=== PATIENT | male | born 1960 ===

== ENCOUNTER → 2020-04-23 | Outpatient (CLI) | payer SELFPAY ==
[~2020-04-23] MED LIST: COVID-19 VACCINE (PFIZER)/PF 30 MCG/0.3 ML VIAL IM ONE; EPINEPHRINE INJ/PF 1 MG/1 ML AMPULE IM PRN
--- OUTSIDE RECORDS SUMMARY | 2020-04-26 10:33 | XMS REPORT ---
:1960 Author Organization [facility] Address [address] [place] [address] Care Team Providers Name Role Phone Lily Bateman Primary Care Physician Unavailable MD Emi Sutton Attending Clinician Unavailable MD Feroz Sutton Attending Clinician Unavailable Gilles GRIFFIN Attending Clinician Unavailable Kasia GEORGE Attending Clinician Unavailable Fransico Attending Clinician Unavailable Services Attending Clinician Unavailable Shaina FLAT BED KNITTER, M Unavailable Fransico MULLINS, F Unavailable Allergies, Adverse Reactions, Alerts Allergy Allergy Status Severity Reaction(s) Onset Inactive Treating C omments Name Type Date Date Clinician Penicillin Penicillin Active Rash 2020-0 G G 3-11 Benzathine Benzathine 00:00: & Proc & Proc 00 *PENICILLIN *PENICILLI S* NS* Penicillins Allergy to Active 2018-04 ([id number] substance 2-23 ) 00:00: 00 Penicillins Penicillin Inactive Rash s Medications Ordered Filled Start Stop Current Ordering Indication Dosage Frequency Signature Comments Components Medication Medication Date Date Medication? Clinician (SIG) Name Name Ketorolac 2018-04 No Ketorolac Medic atio Tromethamin Tromethami n t aken e 10 MG 12:58: ne 10 MG as Oral Tablet 33 Oral needed. Tablet as needed (10 MG) Active Comments: Medication taken as needed. predniSONE 2018-04 No Lily Garcia 2{Table predniSONE 20 MG Oral Bateman t} 20 MG Oral Tablet 00:00: PAC Tablet 2 00 (two) Tablet day x 3 days, then 1 day x 3 days for 6 days Quantity: 9 {Tablet} Refills: 0 Ordered: 9 Lily Dangelo Start : 9Active Polymyxin/T 2018-04 Yes 1 Q3hwa DO rimethoprim 2-23 NOT EXCEED Sulfate 16:52: 6 00 DOSES/DAY Ketorolac 2018-04 Yes 10 Four Times Tromethamin 2-23 Daily as e 16:44: needed for 00 Pain Methocarbam 2018-04 Yes 750 Every 4 ol 2-23 Hours for 16:44: 00 ALEVE, Yes 2{Capsu ALEVE, Medicatio 220MG (Oral 12-16 le} 220MG n taken Capsule) 13:28: (Oral as 22 Capsule) 2 needed. as needed (220 MG) Active Comments: Medication taken as needed. Baclofen 10 No 0{Table Baclofen Me dicatio MG Oral 12-16 t} 10 MG Oral n taken Tablet 13:28: Tablet 1-2 as 22 as needed needed. (10 MG) Active Comments: Medication taken as needed. ZyrTEC Yes 1{Capsu QD ZyrTEC Allergy 10 12-16 le} Allergy 10 MG Oral 13:28: MG Oral Capsule 22 Capsule 1 daily (10 MG) Active Iron 28 MG No 1{Table QD Iron 28 MG Oral Tablet t} Oral Tablet 1 daily (28 MG) Active traMADol Yes 0{Table traMADol [facility] HCl 50 MG t} HCl 50 MG n take n Oral Tablet Oral as Tablet 1-2 needed. As needed (50 MG) Active Comments: Medication taken as needed. Iron 65 MG Yes 1{Table QD Iron 65 MG Oral Tablet t} Oral Tablet 1 daily (65 MG) Active Tamsulosin No 1{Capsu QD Tamsulosin St arted HCl 0.4 MG le} HCl 0.4 MG by Nelly goodman Oral Oral MD Herman Capsule Capsule 1 on daily (0.4 07/17/19 MG) Active Comments: Started by Feroz Sutton MD on 07/17/19 Problems Condition Condition Condition Status Onset Resolution Last Treatin g Comments Name Details Category Date Date Treatment Clinician Date Problem No Known Condition 2019-042020-03-07 Merritt, Impairments 05-08 14:12:13 Kristen M 00:00: 00 Problem No Known Condition Inactiv 2019-08-31 Merritt, Impairments e 12-16 13:49:47 Kristen M 00:00: 00 Low back Low back Problem Active Bateman, pain, pain, Lily F non-specifi non-specifi c c IMPAIRED IMPAIRED Problem Active Bateman, FASTING FASTING Lily Garcia GLUCOSE GLUCOSE (Renamed (Renamed from from Elevated Elevated fasting fasting blood blood sugar) sugar) PURE PURE Problem Active Bateman, HYPERCHOLES HYPERCHOLES Lily Garcia TEROLEMIA TEROLEMIA (Renamed (Renamed from from Hypercholes Hypercholes terolemia terolemia without without hypertrigly hypertrigly ceridemia) ceridemia) Annual Annual Problem Active Fransico, physical physical Lily Garcia exam exam BMI BMI Problem Active Bateman, 29.0-29.9,a 29.0-29.9,a Lily Garcia dult dult BMI BMI Problem Active Bateman, 31.0-31.9,a 31.0-31.9,a Lily Garcia dult dult Depression Depression Problem Inactiv Bateman, screening screening e Lily Garcia negative negative (Renamed (Renamed from from Negative Negative depression depression screening) screening) Screening Screening Problem Active Fransico, for for Lily Garcia depression depression Refusal Refusal (Renamed (Renamed from from Screening Screening for for depression) depression) Plantar Plantar Problem Active Fransico, fasciitis fasciitis Lily Garcia Prostate Prostate Problem Active Bateman, cancer cancer Lily Garcia screening screening Cough Cough Problem Active Lily Bateman Microcytic Microcytic Problem Active Bateman, erythrocyte erythrocyte Lily Garcia s s Micturition Micturition Problem Active Yunior varner, syncope syncope Lily Garcia Sinus pain Sinus pain Problem Active Lily Bateman Orthostasis Orthostasis Problem Active Lily Chavez Procedures Procedure Date / Time Performed Performing Clinician Devi e Venipuncture for blood test (76766) 2020-03-02 00:00:00 Lily Chavez Venipuncture for blood test (08997) 2019-08-21 00:00:00 Lily Chavez Annual Depression Screening 2019-06-10 00:00:00 Kristen [facility] HG A1C LEVEL < 7.0% (3044F) 2019-05-26 00:00:00 Lily Bateman Venipuncture for blood test (34710) 2019-05-26 00:00:00 Lily Chavez Venipuncture for blood test (60790) 2019-04-02 00:00:00 Lily Chavez HG A1C LEVEL < 7.0% (3044F) 2018-12-03 00:00:00 Lily Bateman Venipuncture for blood test (97299) 2018-12-03 00:00:00 Lily Chavez Annual Depression Screening 2018-06-02 00:00:00 Kristen Merritt OFFICE OUTPATIENT VISIT 15 MINUTES 2017-05-29 14:30:00 HG A1C LEVEL < 7.0% (3044F) 2017-05-21 13:38:00 Venipuncture for blood test (73599) 2017-05-21 10:13:00 OFFICE OUTPATIENT VISIT 15 MINUTES 2017-03-28 14:13:00 OFFICE OUTPATIENT VISIT 15 MINUTES 2015-09-29 11:15:00 Colonoscopy,screening 2013-08-28 00:00:00 Kristen [facility] Anal Fissure Repair Lily Bateman Flu Vaccine Kristen [facility] Kidney stone removal Lily Bateman Rotator Cuff Repair - Right Lily Bateman Tonsillectomy Lily Bateman Results Test Description Test Time Test Comments Text Results Atomic Results Result Comments SARS-CoV-2 RNA Resp Ql NICOLE+probe 2020-04-20 00:00:00 Test Item Value Reference Range Comments SARS-CoV-2 RNA Resp Ql NICOLE+probe Not detected [facility] Case ID: (test code = 70551-8) [id number] SARS-CoV-2 RNA Resp Ql NICOLE+qplve9367-11-91 00:00:00 Test Item Value Reference Range Comments SARS-CoV-2 RNA Resp Ql Not detected [facility] Case NICOLE+probe (test code = ID: COVID [id number]) SARS-CoV-2 RNA Resp Ql NICOLE+[id number] 00:00:00 Test Item Value Reference Range Comments SARS-CoV-2 RNA Resp Ql Not detected [facility] Case NICOLE+probe (test code = ID: COVID _[id number]) Hemoglobin A1c (20876)2019-05-26 00:00:00 Test Item Value Reference Range Comments HEMOGLOBIN GLYCLATED (HGB A1C) (test code = 4548-4) 5.3 % 0-5.7 Color of Urine by [id number] 15:41:00 Test Item Value Reference Range Comments Urine Color (test code = 67957-3) Yellow Urine clarity by refractometry [id number] 15:41:00 Test Item Value Reference Range Comments Urine Appearance (test code = 77841-8) Clear Urine specific gravity measurement by automated test strip (relative density) 2019-03-23 15:41:00 Test Item Value Reference Range Comments Urine Specific [place] (test code = 60729-4) 1.019 1.0 05-1.030 Urine pH measurement by automated test [id number] 15:41:00 Test Item Value Reference Range Comments Urine pH (test code = 37514-2) 6.0 5.0-8.0 Urine leukocyte esterase detection by automated test [id number] 15:41:00 Test Item Value Reference Range Comments Urine Leukocyte Esterase (test code = 47881-0) NEGATIVE N EGATIVE Urine nitrite detection by automated test [id number] 15:41:00 Test Item Value Reference Range Comments Urine Nitrite (test code = 56493-2) NEGATIVE NEGATIVE Urine protein detection by automated test [id number] 15:41:00 Test Item Value Reference Range Comments Urine Protein (test code = 72724-8) NEGATIVE NEGATIVE Urine glucose detection by automated test [id number] 15:41:00 Test Item Value Reference Range Comments Urine Glucose (UA) (test code = 22900-5) NEGATIVE NEGATIV E Urine ketone detection by automated test [id number] 15:41:00 Test Item Value Reference Range Comments Urine Ketones (test code = 19946-6) NEGATIVE NEGATIVE Urine urobilinogen measurement by automated test strip (mass/volume)2019-03-23 15:41:00 Test Item Value Reference Range Comments Urine Urobilinogen (test code = 56165-3) NEGATIVE NEGATIV E Urine bilirubin detection by automated test [id number] 15:41:00 Test Item Value Reference Range Comments Urine Bilirubin (test code = 59011-7) NEGATIVE NEGATIVE Urine erythrocytes detection by automated [id number] 15:41:00 Test Item Value Reference Range Comments Urine Blood (test code = 81765-1) NEGATIVE NEGATIVE Urine ascorbic acid [id number] 15:41:00 Test Item Value Reference Range Comments Urine Ascorbic Acid Level 1+ "Ascor bic acid is found in various (test code = 1904-2) food suppli es and dietary supplements. Con centrations of ascorbic acid gr eater than 1+ can be expected to c ause strong interference wit h glucose, blood, and nitrite, pos sibly resulting in false negatives. " [id number] 15:00:[address] [id number] Patient: LILY KELLER : 1960 Sex: M Address: [address] [place] [address] [place] [address] Unit #: [id number] REQ SEQ #: [id number] [place] [facility] [place]: Ordering: RAMESH OLVERA PA-C Diagnosis: DIZZY/SEVERAL FALLS LUMBAR SPINE 3 VIEWS, HIP RIGHT 2 VIEWS WITH PELVIS, SACRUM COCCYX Clinical Information: DIZZY/SEVERAL FALLS Comparison: Lumbar spine 08/08/2018 Lumbar spine: AP and lateral views of the lumbar spine, as well as a coned down lateral view of the lumbosacral junction show 5 nonrib-bearing lumbar vertebrawith normal height. No evidence for acute fractures or subluxation. Unchanged mild lumbar levoscoliosis. There is moderate disc space osteophytes at L5-S1 from degenerative disc changes. Facet arthrosis at L5-S1 and L4-5.. Pedicles and endplates appear intact. Paravertebral soft tissues appear within normal limits. Impression: 1. No radiographic evidence for acute lumbar spine trauma. 2.Lower lumbar spondylosis. Pelvis and right hip: An AP view of the pelvis, AP right hip, and frog-lateral view of the right hip show no acute bony, joint or soft tissue abnormalities. There is no evidence for acute fracture or dislocation. Mild osteoarthritis of both hips. Impression: Degenerative changes without evidence for acute fracture or dislocation right hip. Sacrum andcoccyx: 3 views. SI joints and pubic symphysis are unremarkable. Sacrum and coccyx appear intact. No displaced fractures. IMPRESSION: No radiographic evidence for acute fracture. Final report electronically signed by: Michael Mueller DO Signed by: KRYSTINA MUELLER DO 03/23/19 [id number] cc: RAMESH OLVERA PA-C, WILLIAM C DO [id number] 15:00:[address] [id number] Patient: LILY KELLER : 1960 Sex: M Address: [address] [place] [address] [place] [address] Unit #: [id number] REQ SEQ #: [id number] Location: [facility] Room #: Ordering: RAMESH OLVERA PA-C Diagnosis: DIZZY/SEVERAL FALLS LUMBAR SPINE 3 VIEWS, HIP RIGHT 2 VIEWS WITH PELVIS, SACRUM COCCYX Clinical Information: DIZZY/SEVERAL FALLS Comparison: Lumbar spine 08/08/2018 Lumbar spine: AP and lateral views of the lumbar spine, as well as a coned down lateral view of the lumbosacral junction show 5 nonrib-bearing lumbar vertebrawith normal height. No evidence for acute fractures or subluxation. Unchanged mild lumbar levoscoliosis. There is moderate disc space osteophytes at L5-S1 from degenerative disc changes. Facet arthrosis at L5-S1 and L4-5.. Pedicles and endplates appear intact. Paravertebral soft tissues appear within normal limits. Impression: 1. No radiographic evidence for acute lumbar spine trauma. 2.Lower lumbar spondylosis. Pelvis and right hip: An AP view of the pelvis, AP right hip, and frog-lateral view of the right hip show no acute bony, joint or soft tissue abnormalities. There is no evidence for acute fracture or dislocation. Mild osteoarthritis of both hips. Impression: Degenerative changes without evidence for acute fracture or dislocation right hip. Sacrum andcoccyx: 3 views. SI joints and pubic symphysis are unremarkable. Sacrum and coccyx appear intact. No displaced fractures. IMPRESSION: No radiographic evidence for acute fracture. Final report electronically signed by: Michael Mueller DO Signed by: KRYSTINA MUELLER DO 03/23/19 1305 cc: RAMESH OLVERA PA-C, WILLIAM C DO [id number] 15:00:[address] [id number] Patient: LILY KELLER : 1960 Sex: M Address: [address] [place] [address] [place] [address] [id number] Unit #: [id number] [facility] SEQ #: [id number] [place] [facility] [place] #: Ordering: RAMESH OLVERA PA-C Diagnosis: DIZZY/SEVERAL FALLS LUMBAR SPINE 3 VIEWS, HIP RIGHT 2 VIEWS WITH PELVIS, SACRUM COCCYX Clinical Information: DIZZY/SEVERAL FALLS Comparison: Lumbar spine 08/08/2018 Lumbar spine: AP and lateral views of the lumbar spine, as well as a coned down lateral view of the lumbosacral junction show 5 nonrib-bearing lumbar vertebrawith normal height. No evidence for acute fractures or subluxation. Unchanged mild lumbar levoscoliosis. There is moderate disc space osteophytes at L5-S1 from degenerative disc changes. Facet arthrosis at L5-S1 and L4-5.. Pedicles and endplates appear intact. Paravertebral soft tissues appear within normal limits. Impression: 1. No radiographic evidence for acute lumbar spine trauma. 2.Lower lumbar spondylosis. Pelvis and right hip: An AP view of the pelvis, AP right hip, and frog-lateral view of the right hip show no acute bony, joint or soft tissue abnormalities. There is no evidence for acute fracture or dislocation. Mild osteoarthritis of both hips. Impression: Degenerative changes without evidence for acute fracture or dislocation right hip. Sacrum andcoccyx: 3 views. SI joints and pubic symphysis are unremarkable. Sacrum and coccyx appear intact. No displaced fractures. IMPRESSION: No radiographic evidence for acute fracture. Final report electronically signed by: Michael Mueller DO Signed by: KRYSTINA MUELLER DO 03/23/19 [id number] cc: RAMESH OLVERA PA-C, WILLIAM C DO Total [id number] 13:44:00 Test Item Value Reference Range Comments Total Bilirubin (test code = HIJ3041) 0.7 0.1-1.2 Total protein [id number] 13:44:00 Test Item Value Reference Range Comments Total Protein (test code = 2885-2) 7.1 6.0-8.3 Blood leukocytes automated count (number/volume)2019-03-23 13:44:00 Test Item Value Reference Range Comments White Blood Count (test code = 6690-2) 11.9 3.6-11.1 [id number] 13:44:00 Test Item Value Reference Range Comments Albumin (test code = ERT4000) 4.3 3.2-5.2 Plasma globulin measurement (mass/volume)2019-03-23 13:44:00 Test Item Value Reference Range Comments Globulin (test code = 66091-3) 2.8 2.6-4.6 Albumin to globulin [id number] 13:44:00 Test Item Value Reference Range Comments Albumin/Globulin Ratio (test code = 462314) 1.5 1.1- 2.5 AST (SGOT) ser/jfpw6986-34-19 13:44:00 Test Item Value Reference Range Comments Aspartate Amino Transf (AST/SGOT) (test code = 13 5 -34 71505057) Alkaline bqgwxobmmmr6302-17-64 13:44:00 Test Item Value Reference Range Comments Alkaline Phosphatase (test code = 63280389) 103 40-1 50 ALT (SGPT) ser/hzhq5105-61-74 13:44:00 Test Item Value Reference Range Comments Alanine Aminotransferase (ALT/SGPT) (test code = 14 0-55 1742-6) Blood erythrocytes automated count (number/volume)2019-03-23 13:44:00 Test Item Value Reference Range Comments Red Blood Count (test code = 789-8) 5.93 4.27-5.49 Blood hemoglobin measurement (mass/volume)2019-03-23 13:44:00 Test Item Value Reference Range Comments Hemoglobin (test code = 718-7) 14.1 12.9-16.1 Automated blood hematocrit (volume fraction)2019-03-23 13:44:00 Test Item Value Reference Range Comments Hematocrit (test code = 4544-3) 43.5 37.7-46.5 Automated erythrocyte mean corpuscular [id number] 13:44:00 Test Item Value Reference Range Comments Mean Corpuscular Volume (test code = 787-2) 73.4 79.3 -94.8 Automated erythrocyte mean corpuscular hemoglobin (mass per erythrocyte) 2019-03-23 13:44:00 Test Item Value Reference Range Comments Mean Corpuscular Hemoglobin (test code = 785-6) 23.8 26.8-33.2 Automated erythrocyte mean corpuscular hemoglobin concentration measurement (mass/volume)2019-03-23 13:44:00 Test Item Value Reference Range Comments Mean Corpuscular Hemoglobin Concent (test code = 32.4 33.5-35.5 786-4) Automated erythrocyte distribution width plwjk3909-14-39 13:44:00 Test Item Value Reference Range Comments Red Cell Distribution Width (test code = 788-0) 16.5 12.0-15.1 Automated blood platelet count (count/volume)2019-03-23 13:44:00 Test Item Value Reference Range Comments Platelet Count (test code = 777-3) 247 165-353 Automated blood platelet mean volume dbufrpqcuhp1572-45-73 13:44:00 Test Item Value Reference Range Comments Mean Platelet Volume (test code = 33899-3) 8.2 7.5-1 0.6 Automated blood neutrophil count as percentage of total iivpukppdq4158-20-72 13:44:00 Test Item Value Reference Range Comments Neutrophils (%) (Auto) (test code = 770-8) 83.0 43.2- 71.5 Automated blood lymphocyte count as percentage of total tndibogsdo1923-04-79 13:44:00 Test Item Value Reference Range Comments Lymphocytes (%) (Auto) (test code = 736-9) 8.8 16.8- 43.4 Automated blood monocyte count as percentage of total hnamoyrsmg3285-37-71 13:44:00 Test Item Value Reference Range Comments Monocytes (%) (Auto) (test code = 5905-5) 7.3 4.6-12 .4 Automated blood eosinophil count as percentage of total bxgwgtjcrt8374-02-51 13:44:00 Test Item Value Reference Range Comments Eosinophils (%) (Auto) (test code = 713-8) 0.1 0.7-7 .8 Automated blood basophil count as percentage of total hkmhmethoq7795-67-01 13:44:00 Test Item Value Reference Range Comments Basophils (%) (Auto) (test code = 706-2) 0.8 0.2-1.2 Blood neutrophils automated count (number/volume)2019-03-23 13:44:00 Test Item Value Reference Range Comments Neutrophils # (Auto) (test code = 751-8) 9.8 1.9-7.2 Automated blood lymphocyte count (number/volume)2019-03-23 13:44:00 Test Item Value Reference Range Comments Lymphocytes # (Auto) (test code = 731-0) 1.0 1.1-2.7 Blood monocytes automated count (number/volume)2019-03-23 13:44:00 Test Item Value Reference Range Comments Monocytes # (Auto) (test code = 742-7) 0.9 0.3-0.8 Automated blood eosinophil xdpqk4619-79-42 13:44:00 Test Item Value Reference Range Comments Eosinophils # (Auto) (test code = 711-2) 0.0 0.0-0.5 Automated blood basophil count (count/volume)2019-03-23 13:44:00 Test Item Value Reference Range Comments Basophils # (Auto) (test code = 704-7) 0.1 0.0-0.1 Sodium qtykx6759-58-75 13:44:00 Test Item Value Reference Range Comments Sodium Level (test code = 121762401) 142 137-144 Potassium zpcig0405-83-84 13:44:00 Test Item Value Reference Range Comments Potassium Level (test code = 044611769) 4.3 3.1-5.1 Chloride cbchj3750-05-40 13:44:00 Test Item Value Reference Range Comments Chloride Level (test code = 654882653) 104 101-110 Carbon dioxide iuspt6936-98-53 13:44:00 Test Item Value Reference Range Comments Carbon Dioxide Level (test code = 89429779) 29 22-2 9 Glucose ntgum5086-23-49 13:44:00 Test Item Value Reference Range Comments Glucose Level (test code = 60747673) 116 70-105 [id number] 13:44:00 Test Item Value Reference Range Comments Blood Urea Nitrogen (test code = 099744025) 22.0 8.4- 25.7 Creatinine nwwou4347-28-92 13:44:00 Test Item Value Reference Range Comments Creatinine (test code = 783267164) 0.99 0.72-1.25 Estimation of creatinine qsdnczyvf3086-03-27 13:44:00 Test Item Value Reference Range Comments Estimated Creatinine Clearance 88.18 P T Ht: 182.88cm, PT Wt: 90.9KG Calc (test code = 160755896) Anion gap mclrxrpstef9079-39-22 13:44:00 Test Item Value Reference Range Comments Anion Gap (test code = 14937849) 13 7-16 Yqmsivf3588-52-53 13:44:00 Test Item Value Reference Range Comments Calcium Level (test code = 74087500) 9.6 8.4-10.2 Hemoglobin A1c (58236)2018-12-03 00:00:00 Test Item Value Reference Range Comments HEMOGLOBIN GLYCLATED (HGB A1C) (test code = 4548-4) 5.4 % 0-5.7 JUYUMZEKZ9306-51-46 10:36:[address] [id number] Patient: LILY KELLER : 1960 Sex: M Address: [address] [place] [address] [place] [address] Unit #: [id number] [facility] SEQ #: [id number] Location: [facility] Room #: Ordering: DAMARI GEORGE MD Diagnosis: THORACIC SPIN PAIN L SPINE W/FLEX EXT 7 VIEWS Clinical Information: THORACIC SPINE PAIN. Low back pain. The lumbar vertebrae are normally mineralized. There is no evidence of blastic or destructive changes. There is mild compressionof the L4 vertebral body not significantly changed. There is L5-S1 disc space narrowing with small marginal osteophytes. There is facet arthrosis more prominent at the lower levels. There is no evidence of fracture, subluxation or rotation abnormality. There is no evidence of instability in flexion or extension. There is mild scoliosis convex to the left. The paraspinal soft tissues are unre markable. IMPRESSION: 1. Degenerative changes as described above. 2. Mild chronic L4 vertebral compression deformity. 3. Scoliosis. 4. Otherwise unremarkable. Final report electronically signed by: Feroz Samson MD Signed by: FEROZ SAMSON MD 08/08/18 [id number] cc: KIMMIE SAMSON MD, DEBRA R CHCLWOYTWIF2781-48-03 10:34:[address] [address] [id number] Patient: LILY KELLER : 1960 Sex: M Address: [address] [place] [address] [place] [address] Unit #: [id number] [facility] SEQ #: [id number] Location: [facility] Room #: Ordering: DAMARI GEORGE MD Diagnosis: THORACIC SPIN PAIN THORACIC SPINE 2 VIEWS Clinical Information: THORACIC SPINE PAIN Comparison 09/16/2013. The thoracic vertebrae are normally mineralized. There is no evidence of blastic or destructive changes. There are diffuse small marginal osteophytes. There is no evidence of fracture, compression or malalignment. The paraspinal soft tissues are unremarkable. IMPRESSION: 1. Mild degenerative changes. 2. Otherwise unremarkable. Final report electronically signed by: Feroz Samson MD Signed by: FEROZ GALLEGOS MD 08/08/18 [id number] cc: FEROZ SAMSON MD, DEBRA R [facility]. Metabolic Panel [phone])2017-05-24 00:00:00 Test Item Value Reference Range Comments AST (SGOT) (test code = 1920-8) 17 IU/L 0-40 ALT (SGPT) (test code = 1742-6) 23 IU/L 0-44 Chloride, Serum (test code = 2075-0) 102 mmol/L 96-106 Potassium, Serum (test code = 2823-3) 5.1 mmol/L 3.5-5.2 Glucose, Serum (test code = 2345-7) 97 mg/dL 65-99 Alkaline Phosphatase, S (test code = 6768-6) 80 IU/L 39- 117 A/G Ratio (test code = 1759-0) 2.6 1.2-2.2 Protein, Total, Serum (test code = 2885-2) 6.4 g/dL 6.0-8 .5 Creatinine, Serum (test code = 2160-0) 0.95 mg/dL 0.76-1.27 BUN (test code = 3094-0) 18 mg/dL 6-24 Globulin, Total (test code = 65782-3) 1.8 1.5-4.5 Bilirubin, Total (test code = 1975-2) 0.8 mg/dL 0.0-1.2 BUN/Creatinine Ratio (test code = 3097-3) 19 9-20 Sodium, Serum (test code = 2951-2) 141 mmol/L 134-144 Carbon Dioxide, Total (test code = 2028-9) 25 mmol/L 18-29 Calcium, Serum (test code = 08307-0) 9.4 mg/dL 8.7-10.2 Albumin, Serum (test code = 1751-7) 4.6 g/dL 3.5-5.5 Prostate-Specific Ag, Serum (81160)2017-05-24 00:00:00 Test Item Value Reference Range Comments Prostate Specific Ag, Serum (test code = 2857-1) 0.9 ng/mL 0.0-4.0 Lipid Panel With LDL/HDL Ratio (40419)2017-05-24 00:00:00 Test Item Value Reference Range Comments Cholesterol, Total (test code = 2093-3) 201 mg/dL 100-199 LDL/HDL Ratio (test code = 85139-1) 2.9 0.0-3.6 Triglycerides (test code = 2571-8) 82 mg/dL 0-149 LDL Cholesterol Calc (test code = 65774-9) 138 0-99 VLDL Cholesterol Erick (test code = 67461-5) 16 5-40 HDL Cholesterol (test code = 2085-9) 47 mg/dL >39 Hemoglobin A1c (69093)2017-05-21 00:00:00 Test Item Value Reference Range Comments HEMOGLOBIN GLYCLATED (HGB A1C) (test code = 4548-4) 5.5 % 0-5.7 SARS-COV-2, NICOLE Test Item Value Reference Range Comments SARS-COV-2, NICOLE LDTNOT - Not NOT DETECTED NOT DETECTEDTHIS NUCLEIC ACID (test code = Detected AMPLIFICATION TE ST WAS DEVELOPED AND 81106-1) ITS PERFORMANCEC HARACTERISTICS DETERMINED BY [employer]. NUCLEIC ACIDAMPL IFICATION TESTS INCLUDE RT-PCR A ND TMA. THIS TEST HAS NOT BEENFDA CLEARED OR APPROVED. THIS TEST HAS BE EN AUTHORIZED BY FDA UNDERAN EMERGENC Y USE AUTHORIZATION (EUA). THIS TEST IS ONLY AUTHORIZEDFOR TH E DURATION OF TIME THE DECLARATION THAT CIRCUMSTANCES EXISTJUSTIFYING THE AUTHORIZATION OF THE EMERGENCY US E OF IN VITRODIAGNOSTIC TESTS FOR DETECTION OF SARS-COV-2 YAEL AND/OR DIAGNOSISOF COVI D-19 INFECTION UNDER SECTION 564(B)(1 ) OF THE ACT, 21 U.[place].C.360BBB-3(B ) (1), UNLESS THE AUTHORIZATION IS TERMINATED OR REVOKEDSOONER.WH EN DIAGNOSTIC TESTING IS NEGAT TRELL, THE POSSIBILITY OF A FALSENEGATI VE RESULT SHOULD BE CONSIDERED IN TH E CONTEXT OF A PATIENT'SRECENT EXPOSURES AND THE PRESENCE OF CLIN ICAL SIGNS AND SYMPTOMSCONSISTE NT WITH COVID-19. AN INDIVIDUAL WITHO UT SYMPTOMS OF COVID-19AND WHO IS NOT SHEDDING SARS-COV-2 VIRUS WOULD EXPECT TO HAVE ANEGATIVE ( NOT DETECTED) RESULT IN THIS ASSAY. SARS-COV-2, NICOLE Test Item Value Reference Range Comments SARS-COV-2, NICOLE LDTNOT - Not NOT DETECTED NOT DETECTEDTHIS NUCLEIC ACID (test code = Detected AMPLIFICATION TE ST WAS DEVELOPED AND 44882-9) ITS PERFORMANCEC HARACTERISTICS DETERMINED BY [employer]. NUCLEIC ACIDAMPL IFICATION TESTS INCLUDE PCR AND TMA. THIS TEST HAS NOT BEEN FDACLEA RED OR APPROVED. THIS TEST HAS BE EN AUTHORIZED BY FDA UNDER ANEMERGENC Y USE AUTHORIZATION (EUA). THIS TEST IS ONLY AUTHORIZED FORTHE DURATION OF TIME THE DECLARATION THAT CIRCUMSTANCES EXISTJUSTIFYING THE AUTHORIZATION OF THE EMERGENCY US E OF IN VITRODIAGNOSTIC TESTS FOR DETECTION OF SARS-COV-2 YAEL AND/OR DIAGNOSISOF COVI D-19 INFECTION UNDER SECTION 564(B)(1 ) OF THE ACT, 21 U.S.C.360BBB-3(B ) (1), UNLESS THE AUTHORIZATION IS TERMINATED OR REVOKEDSOONER.WH EN DIAGNOSTIC TESTING IS NEGAT TRELL, THE POSSIBILITY OF A FALSENEGATI VE RESULT SHOULD BE CONSIDERED IN TH E CONTEXT OF A PATIENT'SRECENT EXPOSURES AND THE PRESENCE OF CLIN ICAL SIGNS AND SYMPTOMSCONSISTE NT WITH COVID-19. AN INDIVIDUAL WITHO UT SYMPTOMS OF COVID-19AND WHO IS NOT SHEDDING SARS-COV-2 VIRUS WOULD EXPECT TO HAVE ANEGATIVE ( NOT DETECTED) RESULT IN THIS ASSAY. CELIAC DISEASE COMPREHENSIVE Test Item Value Reference Range Comments DEAMIDATED GLIADIN ABS, IGA (test code = 59527-4) 5 UNITS 0-19 DEAMIDATED GLIADIN ABS, IGG (test code = 47396-8) 7 UNITS 0-19 T-TRANSGLUTAMINASE (TTG) IGA (test code = 53673-9) <2 U/ML 0-3 T-TRANSGLUTAMINASE (TTG) IGG (test code = 64315-6) 2 U/ML 0-5 ENDOMYSIAL ANTIBODY IGA (test code = 00459-0) N NE GATIVE NEGATIVE IMMUNOGLOBULIN A, QN, SERUM (test code = 2458-8) 102 MG/DL 90-386 CBC WITH DIFFERENTIAL/PLATELET Test Item Value Reference Range Comments WBC (test code = 6690-2) 6.5 X10E3/UL 3.4-10.8 RBC (test code = 789-8) 5.63 X10E6/UL 4.14-5.80 HEMOGLOBIN (test code = 718-7) 16.3 G/DL 13.0-17.7 HEMATOCRIT (test code = 4544-3) 47.3 % 37.5-51.0 MCV (test code = 787-2) 84 FL 79-97 MCH (test code = 785-6) 29 PG 26.6-33.0 MCHC (test code = 786-4) 34.5 G/DL 31.5-35.7 RDW (test code = 788-0) 13.1 % 11.6-15.4 PLATELETS (test code = 777-3) 176 X10E3/UL 150-450 NEUTROPHILS (test code = 770-8) 62 % LYMPHS (test code = 736-9) 29 % MONOCYTES (test code = 5905-5) 6 % EOS (test code = 713-8) 2 % BASOS (test code = 706-2) 1 % NEUTROPHILS (ABSOLUTE) (test code = 751-8) 4 X10E3/UL 1.4-7 .0 LYMPHS (ABSOLUTE) (test code = 731-0) 1.9 X10E3/UL 0.7-3.1 MONOCYTES(ABSOLUTE) (test code = 742-7) .4 X10E3/UL 0.1-0.9 EOS (ABSOLUTE) (test code = 711-2) .1 X10E3/UL 0.0-0.4 BASO (ABSOLUTE) (test code = 704-7) 0 X10E3/UL 0.0-0.2 IMMATURE GRANULOCYTES (test code = 87743-7) 0 % IMMATURE GRANS (ABS) (test code = 75533-8) 0 X10E3/UL 0.0-0 .1 IRON AND TIBC Test Item Value Reference Range Comments IRON BIND.CAP.(TIBC) (test code = 2500-7) 325 UG/DL 250-45 0 UIBC (test code = 2501-5) 224 UG/DL 111-343 IRON (test code = 2498-4) 101 UG/DL 38-169 IRON SATURATION (test code = 2502-3) 31 % 15-55 FERRITIN, SERUM Test Item Value Reference Range Comments FERRITIN, SERUM (test code = 2276-4) 123 NG/ML 30-400 SARS-COV-2, NICOLE Test Item Value Reference Range Comments SARS-COV-2, NICOLE LDTNOT - Not NOT DETECTED NOT DETECTEDTHIS NUCLEIC ACID (test code = Detected AMPLIFICATION TE ST WAS DEVELOPED AND 85174-5) ITS PERFORMANCEC HARACTERISTICS DETERMINED BY [employer]. NUCLEIC ACIDAMPL IFICATION TESTS INCLUDE PCR AND TMA. THIS TEST HAS NOT BEEN FDACLEA RED OR APPROVED. THIS TEST HAS BE EN AUTHORIZED BY FDA UNDER ANEMERGENC Y USE AUTHORIZATION (EUA). THIS TEST IS ONLY AUTHORIZED FORTHE DURATION OF TIME THE DECLARATION THAT CIRCUMSTANCES EXISTJUSTIFYING THE AUTHORIZATION OF THE EMERGENCY US E OF IN VITRODIAGNOSTIC TESTS FOR DETECTION OF SARS-COV-2 YAEL AND/OR DIAGNOSISOF COVI D-19 INFECTION UNDER SECTION 564(B)(1 ) OF THE ACT, 21 U.S.C.360BBB-3(B ) (1), UNLESS THE AUTHORIZATION IS TERMINATED OR REVOKEDSOONER.WH EN DIAGNOSTIC TESTING IS NEGAT TRELL, THE POSSIBILITY OF A FALSENEGATI VE RESULT SHOULD BE CONSIDERED IN TH E CONTEXT OF A PATIENT'SRECENT EXPOSURES AND THE PRESENCE OF CLIN ICAL SIGNS AND SYMPTOMSCONSISTE NT WITH COVID-19. AN INDIVIDUAL WITHO UT SYMPTOMS OF COVID-19AND WHO IS NOT SHEDDING SARS-COV-2 VIRUS WOULD EXPECT TO HAVE ANEGATIVE ( NOT DETECTED) RESULT IN THIS ASSAY. Assessments Condition Name Status Diagnosis Date Treating Clinici an Calculus of kidney Active 0 Upper respiratory infection Active Upper respiratory infection Active Upper respiratory infection Active Body mass index (BMI) of 34.0 to 34.9 in Active adult Body mass index (BMI) of 34.0 to 34.9 in Active adult Body mass index (BMI) of 34.0 to 34.9 in Active adult Plantar fasciitis Active Plantar fasciitis Active Plantar fasciitis Active Annual physical exam Active Paresthesia Active Cervical radiculopathy Active Cervical radiculopathy Active Cervical radiculopathy Active Lumbar radiculopathy Active Lumbar radiculopathy Active Lumbar radiculopathy Active Back pain Active Back pain Active Back pain Active Back pain Active Annual physical exam Active Annual physical exam Active Annual physical exam Active Encounter for screening for malignant Active neoplasm of prostate (V76.44) Prostate cancer screening Active Prostate cancer screening Active Prostate cancer screening Active PURE HYPERCHOLESTEROLEMIA (272.0) Active IMPAIRED FASTING GLUCOSE (790.21) Active Hypercholesterolemia without Active hypertriglyceridemia Elevated fasting blood sugar Active Hypercholesterolemia without Active hypertriglyceridemia Elevated fasting blood sugar Active Hypercholesterolemia without Active hypertriglyceridemia Elevated fasting blood sugar Active BRONCHITIS, ACUTE (466.0) Active Cough (786.2) Active Encounters Start End Encounter Admission Attending Care Care Encounter ID Date/Time Date/Time Type Type Clinicians Facility Department 2020-04-19 2020-04-19 Outpatient [facility] [id number] 10:42:02 11:30:32 2020-03-30 2020-03-30 Outpatient [facility] [id number] 09:51:49 11:41:14 2020-03-07 2020-03-07 Virtual Jess Mercado [id number] 14:10:35 14:31:07 Visit [facility] 2020-03-02 2020-03-02 Lab Visit Jess Mercado [id number] 13:12:03 15:30:44 [facility] 2020-02-17 2020-02-17 Outpatient [facility] [id number] 12:20:47 12:52:44 2019-08-31 2019-08-31 Virtual Crystal Crystal [id number] 13:48:58 14:07:49 Visit [facility] 2019-08-21 2019-08-21 Lab Visit Crystal Crystal [id number] 10:50:51 13:46:38 [facility] 2019-07-27 2019-07-27 Medication Crystal Crystal [id number] 09:48:58 09:50:16 Update [facility] 2019-07-17 2019-07-17 Emi Rivero [facility] [id number] 08:09:09 23:59:59 Emi Sutton 2019-06-10 2019-06-10 Office Crystal Crystal [id number] 13:26:48 14:26:27 Visit [facility] 2019-05-26 2019-05-26 Lab Visit Crystal Crystal [id number] 08:38:37 13:49:05 [facility] 2019-04-03 2019-04-03 Historical Crystal Crystal [id number] 10:11:10 10:19:13 Summary [facility] 2019-04-02 2019-04-02 Lab Visit Crystal Crystal [id number] 09:45:23 11:42:16 [facility] 2019-03-31 2019-03-31 Office Crystal Crystal [id number] 08:43:34 13:29:16 Visit [facility] 2019-03-23 2019-03-23 Emergency ED [facility] [id number] 12:35:00 16:56:00 2018-12-16 2018-12-16 Office Crystal Crystal [id number] 13:24:04 13:45:41 Visit [facility] 2018-12-03 2018-12-03 Lab Visit Crystal Crystal [id number] 07:33:40 10:39:25 [facility] C 2018-08-08 2018-08-[address] [facility] [id number] 09:33:00 09:33:00 [facility] 2018-07-31 2018-07-31 Phone Crystal Jess [id number] 12:44:55 12:46:48 Encounter [facility] Practice Practice 2017-05-29 2017-05-29 Outpatient LESLYE Bateman [id number] 14:30:00 14:30:00 [facility] 2017-05-21 2017-05-21 Outpatient Services, LESLYE Mercado [id number] 10:13:00 10:13:00 [facility] 2017-03-28 2017-03-28 Outpatient LESLYE Bateman [id number] 14:13:00 14:13:00 [facility] 2015-09-29 2015-09-29 Outpatient LESLYE Bateman [id number] 11:15:00 11:15:00 [facility] Family History Family Member Diagnosis Comments Start Date Stop Date Unspecified Brother 1 downs syndrome Unspecified Heart Disease Father. A-fib, meningioma Unspecified Mother First Degree Relatives. In good health. Unspecified Family History Reviewed - no changes Unspecified Father Heart Disease. Atrial Fibrillation. Meningioma Immunizations Ordered Filled Immunization Date Status Comments Refus al Immunization Name Name Reason Influenza vaccine, 2018-11-30 Completed Given @ Work quadrivalent 00:00:00 (IIV4), 0.5 mL Payers Payer Name Policy Type Policy Number Effective Date Expiration D ate BCBS SHP Enhanced 80/20 OT Plan of Treatment Planned Activity Planned Date Details Comments Future Scheduled Test [code = ] Future Scheduled Test [code = ] Future Scheduled Test [code = ] Future Scheduled Test [code = ] Future Scheduled Test [code = ] Future Scheduled Test [code = ] Future Scheduled Test [code = ] Future Scheduled Test [code = ] Future Scheduled Test [code = ] Future Scheduled Test [code = ] Future Scheduled Test [code = ] Future Scheduled Test [code = ] Future Scheduled Test [code = ] Future Scheduled Test [code = ] Future Scheduled Test [code = ] Future Scheduled Test [code = ] Future Scheduled Test [code = ] Future Scheduled Test [code = ] Future Scheduled Test [code = ] Future Scheduled Test [code = ] Future Scheduled Test [code = ] Future Scheduled Test [code = ] Future Scheduled Test [code = ] Future Scheduled Test [code = ] Future Scheduled Test [code = ] Future Scheduled Test [code = ] Future Scheduled Test [code = ] Future Scheduled Test [code = ] Future Scheduled Test [code = ] Future Scheduled Test [code = ] Future Scheduled Test [code = ] Future Scheduled Test [code = ] Future Scheduled Test [code = ] Future Scheduled Test [code = ] Future Scheduled Test [code = ] Future Scheduled Test [code = ] Future Scheduled Test [code = ] Future Scheduled Test [code = ] Future Scheduled Test [code = ] Future Scheduled Test [code = ] Future Scheduled Test [code = ] Future Scheduled Test [code = ] Future Scheduled Test [code = ] Future Scheduled Test [code = ] Future Scheduled Test [code = ] Future Scheduled Test [code = ] Future Scheduled Test [code = ] Future Scheduled Test [code = ] Future Scheduled Test [code = ] Future Scheduled Test [code = ] Future Scheduled Test [code = ] Future Scheduled Test [code = ] Future Scheduled Test [code = ] Future Scheduled Test [code = ] Future Scheduled Test [code = ] Future Scheduled Test [code = ] Future Scheduled Test [code = ] Future Scheduled Test [code = ] Future Scheduled Test [code = ] Future Scheduled Test [code = ] Future Scheduled Test [code = ] Future Scheduled Test [code = ] Future Scheduled Test [code = ] Future Scheduled Test [code = ] Future Scheduled Test [code = ] Future Scheduled Test [code = ] Future Scheduled Test [code = ] Future Scheduled Test [code = ] Future Scheduled Test [code = ] Future Scheduled Test [code = ] Future Scheduled Test [code = ] Future Scheduled Test [code = ] Future Scheduled Test [code = ] Future Scheduled Test [code = ] Future Scheduled Test [code = ] Future Scheduled Test [code = ] Future Scheduled Test [code = ] Future Scheduled Test [code = ] Future Scheduled Test [code = ] Future Scheduled Test [code = ] Future Scheduled Test [code = ] Future Scheduled Test [code = ] Future Scheduled Test [code = ] Future Scheduled Test [code = ] Future Scheduled Test [code = ] Future Scheduled Test [code = ] Future Scheduled Test [code = ] Future Scheduled Test [code = ] Social History Social Habit Start Date Stop Date Comments Alcohol Use 1-2 times a week Exercise History: Tobacco Use: Tobacco/Smoke Exposure: Smoking Status Start Date Stop Date Never smoker Never smoked tobacco (finding) Social History Observation Description Sex Male Vital Signs Vital Name Observation Time Observation Value Comments Weight 2020-03-07 14:13:44 210 [lb_av] Body height 2020-03-07 14:13:44 71 [in_us] Body mass index (BMI) 2020-03-07 14:13:44 29.29 kg/m2 [Ratio] Weight 2019-08-31 13:52:50 203 [lb_av] Body height 2019-08-31 13:52:50 71 [in_us] Body mass index (BMI) 2019-08-31 13:52:50 28.31 kg/m2 [Ratio] Heart Rate 2019-06-10 13:28:31 69 /min Pattern: Reg ular O2 SAT 2019-06-10 13:28:31 98 % Room air Systolic blood pressure 2019-06-10 13:28:31 120 mm[Hg] Yahaira ent Position: Sitting; Cuff Location: Left A rm; Cuff Size: Stand miki Diastolic blood pressure 2019-06-10 13:28:31 66 mm[Hg] Pat ient Position: Sitting; Cuff Location: Left A rm; Cuff Size: Stand miki Weight 2019-06-10 13:28:31 202 [lb_av] Body height 2019-06-10 13:28:31 71 [in_us] Body mass index (BMI) 2019-06-10 13:28:31 28.17 kg/m2 [Ratio] Pulse 2019-03-31 12:52:52 80 /min Pattern: Reg ular O2 SAT 2019-03-31 12:52:52 98 % Room air BP Systolic 2019-03-31 12:52:52 130 mm[Hg] Patient Posi tion: Sitting; Cuff Location: Right Arm; Cuff Size: Stand miki BP Diastolic 2019-03-31 12:52:52 80 mm[Hg] Patient Posi tion: Sitting; Cuff Location: Right Arm; Cuff Size: Stand miki Weight 2019-03-31 12:52:52 200 [lb_av] Height 2019-03-31 12:52:52 71 [in_us] Body Mass Index 2019-03-31 12:52:52 27.89 kg/m2 Calculated WEIGHT 2019-03-23 12:41:00 90.9000 kg HEIGHT 2019-03-23 12:41:00 182.082438 cm BP Systolic 2018-12-16 13:38:03 126 mm[Hg] Patient Posi tion: Sitting; Cuff Location: Right Arm; Cuff Size: Stand miki BP Diastolic 2018-12-16 13:38:03 72 mm[Hg] Patient Posi tion: Sitting; Cuff Location: Right Arm; Cuff Size: Stand miki Pulse 2018-12-16 13:25:34 69 /min Pattern: Reg ular BP Systolic 2018-12-16 13:25:34 138 mm[Hg] Patient Posi tion: Sitting; Cuff Location: Left A rm; Cuff Size: Stand miki BP Diastolic 2018-12-16 13:25:34 84 mm[Hg] Patient Posi tion: Sitting; Cuff Location: Left A rm; Cuff Size: Stand miki Weight 2018-12-16 13:25:34 203 [lb_av] Height 2018-12-16 13:25:34 71 [in_us] Body Mass Index 2018-12-16 13:25:34 28.31 kg/m2 Calculated Weight 2019-03-23 12:41:00 200.40 [lb_av] BMI (Body Mass Index) 2019-03-23 12:41:00 27.0 kg/m2 Hospital Discharge Instructions Patient Instructions Sophia Lopez - 04/19/2020 10:40 AM EST Seek immediate emergency medical attention if you experience severe or worsening abdominal pain, difficulty swallowing, stiff neck, shortness of breath, coughing or vomiting up blood, chest pain, increased fever, unexplained weight loss, orblood in stool. Follow up with you primary care provider for questions or any new symptoms documented in this encounterPatient Instructions Sophia Lopez - 03/30/2020 10:00 AM EST Seek immediate emergency medical attention if you experience severe or worsening abdominal pain, difficulty swallowing, stiff neck, shortness of breath, coughing or vomiting up blood, chest pain, increased fever, unexplained weight loss, orblood in stool. Follow up with you primary care provider for questions or any new symptoms documented in this encounterNameDatesDetailsHow to Access Health Information Online using Patient Portal and 3rd [employer] Apps Indication: BMI 29.0-29.9,adult Start: 07-Mar-2020 Instruction Type: Patient Education NameDatesDetailsNo Instruction Information AvailablePatient Instructions Sophia Lopze - 02/17/2020 12:00 PM EST Seek immediate emergency medical attent ion if you experience severe or worsening abdominal pain, difficulty swallowing, stiff neck, shortness of breath, coughing or vomiting up blood, chest pain, increased fever, unexplained weight loss, orblood in stool. Follow up with you primary care provider for questions or any new symptoms documented in this encounter NameDatesDetailsNo Instruction Information AvailableNameDatesDetailsNo Instruction Information AvailableNameDatesDetailsNo Instruction Information AvailableNameDatesDetailsHow to Access Health Information Online using Patient Portal and [employer]rd [employer] Apps Indication: BMI 28.0-28.9,adult (Renamed from Body mass index (BMI) of 28.0 to 28.9 in adult) Start: 10-Jun-2019 Instruction Type: Patient EducationNameDatesDetailsNo Instruction Information Available NameDatesDetailsNo Instruction Information AvailableNameDatesDetailsNo Instruction Information AvailableNameDatesDetailsNo Instruction Information AvailableNameDatesDetailsNo Instruction Information AvailableNameDatesDetailsNo Instruction Information AvailableNameDatesDetailsNo Instruction Information Available
== END ==
LOC: EMPHEALTH 16:41
PROVIDERS: ATTEND Internal Medicine
DX: Z23 Encounter for immunization (principal)
CPT/HCPCS: 91300